=== PATIENT | female | born 1935 | race Caucasian/White ===

== ENCOUNTER → 2016-09-04 | Outpatient (CLI) | payer MEDICARE, OTHER | LOC: GMAB 10:44 | PROVIDERS: ATTEND Family Medicine | DX: D50.9 Iron deficiency anemia, unspecified (principal); D63.1 Anemia in chronic kidney disease; N18.9 Chronic kidney disease, unspecified; I10 Essential (primary) hypertension ==

== ENCOUNTER → 2016-10-07 | Outpatient (CLI) | payer MEDICARE, OTHER ==
--- NOTE | 2016-10-08 11:28 | US ---
EXAM DESCRIPTION: Carotid Duplex CLINICAL HISTORY: STENOSIS COMPARISON: None Available. TECHNIQUE: Carotid Doppler ultrasound. Carreno scale, color Doppler imaging, and spectral pulse Doppler evaluation. FINDINGS: On the right intimal thickening in the common carotid artery with tortuosity is present with extensive anterior and posterior calcified shadowing plaque at the carotid bifurcation noted. Moderate stenosis at the origin of the external carotid artery with antegrade flow is noted. Peak common carotid velocities are 78/11 cm/s with peak ICA velocities proximally of 112/18 cm/s with similar velocities extending into the distal ICA. The mated area stenosis of 51% in the bulb region and a 32% area stenosis of the proximal ICA is suggested on cross-sectional imaging. Hemodynamically no significant stenosis or velocity acceleration is noted. The ICA/CCA ratio is normal at 1.4. On the left peak CCA velocities are 93/14 cm/s with peak ICA velocities of 71/18 cm/s. On cross-sectional imaging there is an estimated 25% area stenosis of the bulb and 30% area stenosis of the ICA. Intimal thickening is present with shadowing plaque at the carotid bifurcation. [place] bilateral antegrade flow in the vertebral arteries is demonstrated. IMPRESSION: Intimal thickening of each common carotid artery with focal calcified shadowing plaque in each carotid bifurcation and proximal internal carotid artery without hemodynamically significant stenosis. Less than 40% stenosis bilaterally is suspected on a diameter basis. Antegrade flow in each vertebral artery. Electronically signed by: Efrain Tony MD 10/08/2016 11:27 AM CDT
== END | disposition home or self-care (01) ==
LOC: US 10:36
PROVIDERS: ATTEND Family Medicine
DX: I65.23 Occlusion and stenosis of bilateral carotid arteries (principal)

== ENCOUNTER 2016-11-27 15:27 | Inpatient (IN) | payer MEDICARE, OTHER ==
[2016-11-27] MEDS ORDERED: ASPIRIN (CHEWABLE) 81 MG TAB PO ONE (15:32)
[2016-11-27] MEDS ORDERED: SODIUM CHLORIDE 0.9% (FLUSH) 10 ML SYG IV PRN ×2 (15:32→21:36)
--- NOTE | 2016-11-27 15:32 | ED.PDOC ---
History of Present Illness - General Chief Complaint: General Stated Complaint: sob/chest pain Time Seen by Provider: 11/27/16 15:32 Source: patient, family Exam Limitations: no limitations - History of Present Illness Initial Comments: Osmel Barton 81 y/o female stated that she had bee short of breath since this morning then while she was doing the laundry bed linens had onset of sharp chest pains 45 minutes ago. Timing/Duration: 1 hour Severity/Quality: moderate, sharp Location: substernal Chest Pain Radiation: no radiation Activities at Onset: activity Prior Chest Pain/Cardiac Workup: cardiac cath, echocardiography, other - cabg Improving Factors: nothing Worsening Factors: nothing Nitro Today/Relief: 0.4 mg x 1, provided by ED Aspirin Treatment Today: 325 mg x 1, provided by ED Associated Symptoms: shortness of breath Allergies/Adverse Reactions: Allergies Penicillins Allergy (Unverified 07/25/12 08:03) 07/24/12 ADM.ORDERS Home Medications: Ambulatory Orders Lisinopril 5 mg PO DAILY #0 07/25/12 Tramadol HCl 50 mg PO BID 04/06/14 Non-Formulary Medication (Novolin N) 0 units SUBCU BEDTIME PRN 06/03/14 Metoprolol Succinate [Toprol Xl] 50 mg PO DAILY #60 tab.er.24 06/05/14 Acetaminophen [Tylenol] 500 mg PO BID 11/12/14 Simvastatin 40 mg PO HS 11/12/14 Citalopram Hydrobromide 40 mg PO DAILY 03/10/15 Magnesium Chloride [Slow-Mag] 64 mg PO BID 03/10/15 Mirtazapine [Remeron] 15 mg PO BEDTIME 03/10/15 glipiZIDE [Glucotrol] 5 mg PO BID 03/10/15 Loratadine 10 mg PO DAILY 11/27/16 Magnesium Chloride [Slow-Mag] 64 mg PO QID 11/27/16 Memantine HCl-Donepezil HCl [Namzaric 28-10 mg] 1 cap PO DAILY 11/27/16 Omeprazole 20 mg PO DAILY 11/27/16 QUEtiapine FUMARATE [SEROquel] 100 mg PO BEDTIME 11/27/16 Review of Systems - Review of Systems Constitutional: States: no symptoms reported EENTM: States: no symptoms reported Respiratory: States: no symptoms reported Cardiology: States: see HPI Gastrointestinal/Abdominal: States: no symptoms reported Genitourinary: States: no symptoms reported Musculoskeletal: States: no symptoms reported Skin: States: no symptoms reported Neurological: States: no symptoms reported Endocrine: States: no symptoms reported Hematologic/Lymphatic: States: no symptoms reported Past Medical History (General) - Patient Medical History Hx Seizures: No Hx Stroke: Yes - TIA Hx Dementia: Yes Hx Asthma: No Hx of COPD: No Hx Cardiac Disorders: Yes Hx Congestive Heart Failure: No Hx Pacemaker: Yes Hx Hypertension: Yes Hx Diabetes: Yes Hx Gastroesophageal Reflux: Yes Hx Cancer: No Hx MRSA: Yes MRSA Source:: Wound - Vaccination History Hx Influenza Vaccination: Yes Hx Pneumococcal Vaccination: Yes - Social History Hx Tobacco Use: No Hx Alcohol Use: No Hx Substance Use: No Hx Physical Abuse: No Hx Emotional Abuse: No - Female History Patient : No Family Medical History - Family History Mother Family History: Unknown Living Status: Hx Family Asthma: No Hx Family Congestive Heart Failure: No Hx Family Hypertension: Yes Hx Family Diabetes: Yes Physical Exam - Physical Exam General Appearance: Alert, No apparent distress Eyes, Ears, Nose, Throat Exam: PERRL/EOMI, normal ENT inspection Neck: non-tender, full range of motion, supple, normal inspection Respiratory: chest non-tender, lungs clear, normal breath sounds, no respiratory distress Cardiovascular/Chest: normal peripheral pulses, regular rate, rhythm, no murmur Peripheral Pulses: radial,right: 1+, radial,left: 1+ Gastrointestinal/Abdominal: normal bowel sounds, non tender, soft, no organomegaly Extremity: normal inspection, no pedal edema, no calf tenderness Neurologic: no motor/sensory deficits, alert, normal mood/affect, oriented x 3 Skin Exam: normal color, warm/dry Lymphatic: no adenopathy Progress - Progress Progress: 11/27/16 20:42 11/27/16 11/27/16 11/27/16 15:33 15:53 16:27 Temperature 97.7 F Pulse Rate [ 57 L 48 L Left Brachial] Respiratory 20 20 Rate Blood Pressure 182/78 136/55 [Left Arm] O2 Sat by Pulse 95 91 L 95 Oximetry 11/27/16 11/27/16 11/27/16 17:00 18:00 19:00 Temperature Pulse Rate [ 46 L 47 L 47 L Left Brachial] Respiratory 16 20 18 Rate Blood Pressure 139/61 131/66 153/61 [Left Arm] O2 Sat by Pulse 97 93 L 93 L Oximetry 11/27/16 20:00 Temperature Pulse Rate [ 47 L Left Brachial] Respiratory Rate Blood Pressure 136/67 [Left Arm] O2 Sat by Pulse 92 L Oximetry 11/27/16 15:32 Telemetry ONCE Nitroglycerin 0.4 mg Tab [Nitrostat] 1 ea SL .Q5MIN PRN Sodium Chloride 0.9% (Flush) [Saline Flush Syringe] 3 ml IV PRN PRN URINALYSIS Stat 11/27/16 15:45 EKG STAT 11/28/16 09:00 Pulse Ox Daily Laboratory Results - last 24 hr 11/27/16 11/27/16 11/27/16 15:40 15:40 15:40 WBC 6.8 RBC 2.68 L Hgb 9.4 L Hct 29.0 L MCV 108.1 H MCH 35.0 H MCHC 32.5 L RDW 14.5 Plt Count 128 L MPV 7.9 Absolute Neuts (auto) 4.70 Absolute Lymphs (auto) 1.30 Absolute Monos (auto) 0.60 Absolute Eos (auto) 0.30 Absolute Basos (auto) 0.10 Neutrophils % 68.2 Lymphocytes % 18.4 L Monocytes % 8.2 Eosinophils % 4.2 Basophils % 1.0 PT 13.4 H INR 1.190 PTT (SP) 28.2 D-Dimer, Quantitative 443 H* pCO2 pO2 HCO3 ABG pH ABG O2 Saturation ABG Base Excess ABG Deoxyhemoglobin Oxyhemoglobin % Carboxyhemoglobin % Methemoglobin % Sat Calc Total Hemoglobin Sodium 140 Potassium 5.7 H Chloride 111 Carbon Dioxide 20 L Anion Gap 14.7 BUN 32 H Creatinine 1.77 H BUN/Creatinine Ratio 18.1 Random Glucose 179 H Serum Osmolality 290.8 Calcium 9.1 Magnesium 1.8 Total Bilirubin 0.5 AST 43 H ALT 46 Alkaline Phosphatase 118 Creatine Kinase 53 CK-MB (CK-2) 2.2 CK-MB (CK-2) % Not Reportable Troponin I 0.02 B-Natriuretic Peptide 459.0 H* Serum Total Protein 7.0 Albumin 4.0 Globulin 3.0 Albumin/Globulin Ratio 1.3 11/27/16 11/27/16 17:25 18:15 WBC RBC Hgb Hct MCV MCH MCHC RDW Plt Count MPV Absolute Neuts (auto) Absolute Lymphs (auto) Absolute Monos (auto) Absolute Eos (auto) Absolute Basos (auto) Neutrophils % Lymphocytes % Monocytes % Eosinophils % Basophils % PT INR PTT (SP) D-Dimer, Quantitative pCO2 36 pO2 71 L HCO3 19.4 ABG pH 7.350 ABG O2 Saturation 95.2 ABG Base Excess -5.2 ABG Deoxyhemoglobin 4.7 Oxyhemoglobin % 93.1 L Carboxyhemoglobin % 0.3 L Methemoglobin % Sat 2.0 H Calc Total Hemoglobin 8.3 L Sodium Potassium Chloride Carbon Dioxide Anion Gap BUN Creatinine BUN/Creatinine Ratio Random Glucose Serum Osmolality Calcium Magnesium Total Bilirubin AST ALT Alkaline Phosphatase Creatine Kinase CK-MB (CK-2) CK-MB (CK-2) % Troponin I 0.02 B-Natriuretic Peptide Serum Total Protein Albumin Globulin Albumin/Globulin Ratio - EKG/XRAY/CT EKG: Sinus, nonspecific ST T wave Chg Comments: HR-55 XRAY: chest - mild linear infiltrates no acute changes Departure - Departure Clinical Impression: Shortness of breath, Anemia, chronic disease Chest pain Qualifiers: Chest pain type: unspecified Qualified Code(s): R07.9 - Chest pain, unspecified Time of Disposition: 20:59 - D/W Juan F Momin ANP/Hospitalist Disposition: Admit Patient Condition: Fair Referrals: Julio Singh MD [Primary Care Provider] - 1-2 Weeks Home Medications: Ambulatory Orders Lisinopril 5 mg PO DAILY #0 07/25/12 Tramadol HCl 50 mg PO BID 04/06/14 Non-Formulary Medication (Novolin N) 0 units SUBCU BEDTIME PRN 06/03/14 Metoprolol Succinate [Toprol Xl] 50 mg PO DAILY #60 tab.er.24 06/05/14 Acetaminophen [Tylenol] 500 mg PO BID 11/12/14 Simvastatin 40 mg PO HS 11/12/14 Citalopram Hydrobromide 40 mg PO DAILY 03/10/15 Magnesium Chloride [Slow-Mag] 64 mg PO BID 03/10/15 Mirtazapine [Remeron] 15 mg PO BEDTIME 03/10/15 glipiZIDE [Glucotrol] 5 mg PO BID 03/10/15 Loratadine 10 mg PO DAILY 11/27/16 Magnesium Chloride [Slow-Mag] 64 mg PO QID 11/27/16 Memantine HCl-Donepezil HCl [Namzaric 28-10 mg] 1 cap PO DAILY 11/27/16 Omeprazole 20 mg PO DAILY 11/27/16 QUEtiapine FUMARATE [SEROquel] 100 mg PO BEDTIME 11/27/16 Decision To Admit - Decistion To Admit Decision to Admit Reason: Admit from ER Decision to Admit Date: 11/27/16 Decision to Admit Time: 21:01
[2016-11-27] MEDS ORDERED: ASPIRIN TABLET 325 MG TAB ONE (15:34)
--- NOTE | 2016-11-27 15:48 | RAD ---
EXAM DESCRIPTION: Chest,1 View CLINICAL HISTORY: pain COMPARISON: November 12, 2014 IMPRESSION: Single AP portable upright view of the chest shows cardiac silhouette and pulmonary vasculature to be within normal limits. Postsurgical changes from sternotomy. Left subclavian dual-lead transvenous cardiac pacemaker is again seen. Lungs are normally aerated. Mild linear increased density in the region of the results fissure is seen. No acute infiltrates are identified. No obvious pleural effusion or pneumothorax is seen. Electronically signed by: Flex Mcleod MD 11/27/2016 3:45 PM CDT
[2016-11-27] MEDS ORDERED: ASPIRIN TABLET 325 MG TAB PO ONE (16:00)
[2016-11-27] MEDS: NITROGLYCERIN 0.4 MG 25 EA TAB SL PRN ×3 (16:02→22:06)
--- NOTE | 2016-11-27 21:16 | HP ---
SUPERVISING PHYSICIAN: Fabián Barton MD CHIEF COMPLAINT: Shortness of breath with chest pains. HISTORY OF PRESENT ILLNESS: Ms. Barton is an 81-year-old, female patient who presented to the Emergency Room stating that she had started having some shortness of breath since early this morning while she was doing her laundry and then had a sudden onset of sharp chest pains 45 minutes prior to present to the Emergency Department. She has a history of diabetes, hypertension, and coronary artery disease with a previous coronary artery bypass graft. She was just recently seen by her content analyst, Dr. Jones, in a regular visit and it was noted that the patient was clinically stable from a cardiovascular standpoint. She does have a history also of pacemaker and paroxysmal atrial fibrillation. Her last echocardiogram reviewed was from 2012 and it was noted she had an ejection fraction of 45%. Given the patient's significant shortness of breath, an arterial blood gases was performed showing that she had some mild hypoxemia with a PO2 of 71 on room air satting 95%. She also has a history of macrocytic anemia and chronic renal insufficiency. She is followed by Dr. Arzola. On laboratory studies in the Emergency Room, hemoglobin was 9.4, hematocrit 29.0 with a normal white count and normal differential. Review of the previous records shows the last CBC that was performed in the clinic on 11/12/16 showed hemoglobin 8.7, hematocrit 26.5. She is also noted to have elevated creatinine of 1.77 with an elevated BUN of 32. Review of her previous chemistries in the clinic on the same date as CBC showed she had a BUN at that time of 34 and creatinine 1.7 with potassium 5.9. Her potassium on admission was 5.7. She also had an elevated BNP, but her cardiac enzymes show troponin 0.02 times 2. She was complains of sharp chest pains, more epigastric that was reproducible on palpitation. She was given nitro in the Emergency Department which resulted in minimal relief of her pain, EKG showed a sinus bradycardia with nonspecific ST wave changes with a heart rate of 55. Chest x-ray showed mild linear infiltrates, but no acute changes. She was started on some oxygen as well which did help her saturations. Initially, her vital signs on admission showed she was satting 91% on room air at rest, but having significant desaturations with any exertional effort. Given the patient's symptomatology, past history, and current chest pains, Dr. Quintero, the Emergency Room physician, requested the patient be placed in observation tonight for cardiac telemetry and a repeat of cardiac enzymes as well as further evaluation and treatment to rule out acute myocardial infarction versus exacerbation of congestive heart failure given she had an elevated BNP. It is also noted on coagulation studies that she had an elevated D-dimer of 443 and given her risk factors, close observation is warranted for further evaluation with possibility of performing a CT of the chest to rule out pulmonary embolism after she is given a chance to get some fluids on board and hopefully improve her creatinine enough to complete a CTA. She will be placed in observation tonight for further treatment and evaluation. At the time of admission, she was stable. PAST MEDICAL HISTORY: 1. Hypertension. 2. Macrocystic anemia, followed by Dr. Arzola. 3. Rheumatoid arthritis. 4. History of atrial fibrillation with a permanent cardiac pacemaker. 5. Diabetes, type 2. 6. Congestive heart failure with last echocardiogram in 2012 showing ejection fraction of 45% with systolic dysfunction, unknown etiology. 7. History of frequent transient ischemic attacks and presyncopal episodes, followed by Dr. Jones and Dr. Singh. 8. History of upper GI bleed in 2009 secondary to prepyloric and duodenal bulb ulcers with EGD performed in [address] Joe with patient on an acid suppressant regimen. 9. Chronic back pain. 10. Coronary artery disease. 11. Chronic renal insufficiency, followed by Dr. Corado. 12. Seasonal allergies. 13. Depression and anxiety disorder. 14. Chronic hypomagnesemia. 15. Alzheimer's dementia with a history of hallucinations, followed by Dr. Singh. PAST SURGICAL HISTORY: 1. Coronary artery bypass. 2. Pacemaker placement. 3. Appendectomy. 4. Bilateral cataract surgery. 5. Uterine fibroid removal. 6. Back surgery. 7. Last EGD in June of [address] Joe, for right upper quadrant pain and gastrointestinal bleed, diagnosed with a prepyloric and duodenal bulb ulcer. 8. Laminectomy. CURRENT MEDICATIONS: 1. Glucotrol 5 mg twice daily. 2. Tramadol 50 mg twice daily. 3. Simvastatin 40 mg at bedtime. 4. Seroquel 100 mg at bedtime. 5. Omeprazole 20 mg daily. 6. Novolin N sliding scale. 7. Remeron 15 mg at bedtime. 8. Toprol XL 50 mg daily. 9. Namzaric 28-10 mg 1 capsule daily. 10. Slo-Mag 64 mg q.i.d. 11. Loratadine 10 mg daily. 12. Lisinopril 5 mg daily. 13. Citalopram 40 mg daily. 14. Acetaminophen 500 mg daily. ALLERGIES: PENICILLINS. FAMILY HISTORY: Diabetes and hypertension in her mother. Mother also with history of myocardial infarctions. Brother from liver cancer in 2003. SOCIAL HISTORY: The patient is a nonsmoker. She never drinks alcohol. She has been for 20 years. She lives with her daughter. REVIEW OF SYSTEMS: CONSTITUTIONAL: Denies any fevers, chills, or weight loss. She does have some fatigue. HEENT: No blurred vision, tinnitus, epistaxis or reported dysphagia. RESPIRATORY: As noted in history of present illness with shortness of breath which appears to be an ongoing chronic issue. She denies any cough, sputum production, hemoptysis or wheezing. CARDIOVASCULAR: As noted in history of present illness, midsternal epigastric sharp chest pains that are reproducible and exacerbated by palpation in the epigastric area. Denies any nausea or vomiting, but has had previous presyncopal episodes. GASTROINTESTINAL: Denies nausea or vomiting. No diarrhea. No blood in stool, no significant bowel habit changes. GENITOURINARY: Denies dysuria, hematuria, or frequency. NEUROLOGIC: She notes she has some tingly numbness normally in her hands and feet and has had some presyncopal/syncopal episodes in the past. She has a history of Alzheimer's dementia. Denies any vision changes or headaches. PHYSICAL EXAMINATION: VITAL SIGNS: Temperature 97.7. Pulse 48. Blood pressure 144/86. Respirations 18. Saturation 95% on room air on admission to the Medical/Surgical Floor. Initial O2 on room air was 91% with desaturations with exertional effort. Admission weight 58.7 kg. GENERAL: On admission to the Medical/Surgical Floor, the patient appears to be in no acute distress. She is quite comfortable although she does say she has continued chest pains or epigastric pains. She is alert and oriented. HEENT: Tympanic membranes clear bilaterally. Oropharynx is pink. Mucous membranes dry. No lesions noted. NECK: Supple, nontender, full range of motion. No jugular venous distention noted. CHEST: Lungs clear to auscultation, just diminished towards the bases. No rhonchi, wheezes, or rales. There was notable discomfort with palpation of the epigastric region. She noted it made the chest pain she was reporting worse. CARDIOVASCULAR: Bradycardic rhythm without any murmurs, gallops, or rubs noted. ABDOMEN: Soft, nontender. Positive bowel sounds. EXTREMITIES: There is no cyanosis, clubbing or edema. NEUROLOGIC: The patient is alert and oriented times three. Cranial nerves II- XII are grossly intact. Facial features are symmetrical. Extraocular movements are within normal limits. There is no nystagmus noted. No other neurologic or sensory motor deficits. LABORATORY: White count on admission 6.8, hemoglobin 9.4, hematocrit 29.0, platelet count 128,000, differential within normal limits. Coagulation studies showed PT 13.4, INR 1.1. D-dimer elevated at 443. Blood gas analysis showed normal pH of 7.35, POC2 36, PO2 low at 71, bicarb 19.4, saturation 94% on room air. Chemistries showed an elevated potassium of 5.7, BUN 32, creatinine 1.77, glucose 179, osmolality 290, bilirubin within normal limits, AST slightly elevated. All other liver functions were within normal limits. Initial troponin 0.02, repeat at 3 hours was 0.02. CPK normal at 53. Magnesium 1.8. Urinalysis pending. RADIOLOGY: Single view chest x-ray in the Emergency Department per radiologic interpretation showed portable upright view with a cardiac silhouette and pulmonary vasculature within normal limits. Post surgical changes were noted with sternotomy. Left subclavian dual lead transvenous cardiac pacemaker seen. Lungs were normally aerated with mild linear increased density in the region of the results fissure is seen. No acute infiltrates are identified. No obvious pleural effusion or pneumothorax is seen. EKG in the Emergency Department showed sinus bradycardia with nonspecific ST-wave changes. Review of previous EKG in 2014 showed paced atrial rhythm. On review of records from Dr. Jones clinic visit showed sinus rhythm with nonspecific ST changes as well. ASSESSMENT: 1. Chest pain, unknown etiology, with the patient having a significant history of cardiovascular disease and diabetes requiring further telemetry and monitoring to further rule out acute myocardial infarction. Concerns for angina from anemia. 2. Moderate dehydration with concerns for hemoconcentration with a current low hemoglobin and hematocrit, possibly resulting in ongoing chest pains with the patient having a history of macrocytic anemia. 3. Diabetes mellitus, type 2. 4. Chronic renal insufficiency with prerenal azotemia from dehydration. 5. History of atrial fibrillation with the patient currently being in a sinus rhythm. 6. Electrolyte imbalance with hyperkalemia due to renal insufficiency, possibly exacerbation from dehydration. 7. 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 Arzola. 8. Hypertension. 9. History of coronary artery disease. 10. History of past transient ischemic attacks. 11. Pacemaker implantation due to atrial fibrillation, followed by Dr. Jones. 12. History of chronic back pain. 13. History of dementia/Alzheimer's disease. 14. History of depression and anxiety disorder. 15. History of gastroesophageal reflux disease with previous EGD in 2009 showing prepyloric and duodenal bulb ulcers with the patient being placed on acid suppression with previous EGD performed by Dr. Joe and continued followup with Dr. Singh. 16. History of congestive heart failure with last echocardiogram per medical record review indicated to be performed previously in 2012 and an ejection fraction of 45% with systolic dysfunction with a current elevated Beta natriuretic peptide on admission, possibly falsely elevated secondary to dehydration. 17. Elevated D-dimer with the patient having reported shortness of breath, chest pains, but unable to perform CTA secondary to decreased renal function. PLAN: The patient will be placed in observation tonight and monitored closely on telemetry with repeat of her cardiac enzymes in the morning. Given her dehydration and history of congestive heart failure, we will provide her with IV fluids with half normal saline at 60 an hour. In regards to the hyperkalemia , we will treat this with IV fluids and repeat BMP in the morning. We will utilize IV fluids in efforts to hopefully improve her renal function with anticipation of possibly performing a CT of the chest to further rule out a possible pulmonary embolism. We will also do venous Doppler studies of bilateral extremities to further rule out deep venous thrombosis. We will give her some Protonix IV as well as GI slider to see if this will help with decreasing her pain level as well as some morphine. We will hold off on Lovenox tonight until we can repeat a hemoglobin and hematocrit in the morning and perform occult bloods to ensure that she is not having acute loss and further evaluate her hemoglobin and hematocrit. I will also start her on a nitro patch 0.4 mg in efforts to treat her angina. She does see Dr. Jones for cardiology and Dr. Arzola for her chronic anemia as well as Dr. Corado for renal insufficiency, all of whom are available if need be for further consultation. I will anticipate length of stay to be 1 to 2 days and hopefully will be able to discharge tomorrow. Until discharge, we will continue to monitor the patient closely and treat appropriately. #[id number] [facility]
[2016-11-27] MEDS ORDERED: DEXTROSE 50% 25 GM/50 ML SYG IV PRN (21:36)
[2016-11-27] MEDS ORDERED: NITROGLYCERIN 0.4 MG 25 EA TAB SL PRN (21:36)
[2016-11-27] MEDS ORDERED: GLUCAGON INJ 1 MG VIAL SUBCU PRN (21:36)
[2016-11-27] MEDS ORDERED: MORPHINE SULFATE INJ 10 MG/ML VIAL IV PRN (21:36)
[2016-11-27] MEDS ORDERED: ACETAMINOPHEN 325 MG TAB PO PRN (21:36)
[2016-11-27] MEDS ORDERED: SODIUM CHLORIDE 0.45% 1000ML 1,000 ML IVS PRN (21:40)
[2016-11-27] MEDS ORDERED: IV SET AND CAP CHANGE INJ INJ SCH (22:00)
[2016-11-27] MEDS: NITROGLYCERIN 0.4 MG/HR PATCH TOP SCH (22:06)
[2016-11-27] MEDS ORDERED: LIDOCAINE VIS-MYLANTA 30 ML UD PO ONE (22:24)
[2016-11-27] MEDS ORDERED: PANTOPRAZOLE INJECTION 40 MG in SODIUM CHLORIDE 0.9% 100ML 100 ML IVPB ONE (22:35)
[2016-11-27] MEDS ORDERED: PANTOPRAZOLE SODIUM IV 40 MG VIAL ONE (22:52)
[2016-11-27] MEDS ORDERED: SODIUM CHLORIDE 0.45% 1000ML 1,000 ML IVS ONE (22:55)
[2016-11-27] MEDS ORDERED: SODIUM CHLORIDE 0.9% 100ML 100 ML IVPB ONE (22:57)
[2016-11-28] MEDS: INSULIN LISPRO 100 UNITS/ML PEN SUBCU SCH ×4 (07:59→20:57)
[2016-11-28] MEDS: ASPIRIN TABLET 325 MG TAB PO SCH (08:26)
[2016-11-28] MEDS: SODIUM CHLORIDE 0.9% (FLUSH) 10 ML SYG IV SCH ×2 (08:26→20:20)
[2016-11-28] MEDS ORDERED: MAGNESIUM SULFATE PREMIX 2GM 2 GM in PREMIX BAG 1 BAG IVPB ONE (12:26)
[2016-11-28] MEDS ORDERED: MAGNESIUM SULFATE PREMIX 2GM 50 ML IVPB ONE (12:38)
[2016-11-28] MEDS: MAGNESIUM CHLORIDE 64 MG TAB PO SCH ×3 (12:41→20:17)
[2016-11-28] MEDS: METOPROLOL SUCCINATE XL 50 MG TAB PO SCH (12:41)
--- NOTE | 2016-11-28 12:52 | US ---
EXAM DESCRIPTION: Venous,Lower Extremity RT (accession [id number]), Venous,Lower Extremity LT (accession [id number]) CLINICAL HISTORY: elevated ddimer chest sob COMPARISON: None Available. TECHNIQUE: Bilateral lower extremity venous duplex FINDINGS: There is no DVT identified. There is normal color flow observed with good flow augmentation. All deep veins compress normally. IMPRESSION: Negative for DVT Electronically signed by: Ross Escobar MD 11/28/2016 12:51 PM CDT
--- NOTE | 2016-11-28 12:52 | US ---
EXAM DESCRIPTION: Venous,Lower Extremity RT (accession [id number]), Venous,Lower Extremity LT (accession [id number]) CLINICAL HISTORY: elevated ddimer chest sob COMPARISON: None Available. TECHNIQUE: Bilateral lower extremity venous duplex FINDINGS: There is no DVT identified. There is normal color flow observed with good flow augmentation. All deep veins compress normally. IMPRESSION: Negative for DVT Electronically signed by: Ross Escobar MD 11/28/2016 12:51 PM CDT
[2016-11-28] MEDS: glipiZIDE 5 MG TAB PO SCH (16:37)
--- NOTE | 2016-11-28 17:18 | PN ---
DATE: 11/28/16 SUPERVISING PHYSICIAN: Fabián Barton M.D. SUBJECTIVE: The patient is lying in her hospital bed. Her family member is at the bedside. She has no complaints of chest pain, shortness of breath, nausea or vomiting. She did say she had some mild shortness of breath one time when she got up to go to the bathroom, but other than that she had no problems. OBJECTIVE: She is afebrile, heart rate is 48, blood pressure 144/62, respiratory rate 18, O2 sats have been as low as 88% on 1 liter nasal cannula. They are now 99%. RESPIRATORY: Essentially clear to auscultation. CARDIAC: Bradycardic rate, regular rhythm. ABDOMEN: Soft, nondistended, non-tender. Bowel sounds are positive. EXTREMITIES: No cyanosis, clubbing or edema. NEUROLOGIC: She is awake, alert and oriented times three. LABORATORY: WBC 7.9, hemoglobin 8.2 and 25.1, platelets 110. Sodium 140, potassium 5.5, chloride 112, BUN 31, creatinine 1.57, glucose has run between 138 and 273. Magnesium 1.7. Cardiac enzymes are all negative. Lower extremity ultrasounds are negative for DVT. All other labs and films have been reviewed via the EMR. ASSESSMENT: 1. Chest pain with unknown etiology. She has had 3 sets of negative cardiac enzymes. There are concerns that her angina may be from anemia. 2. Moderate dehydration with concerns for hemoconcentration. Currently has a low hemoglobin and hematocrit, and may have resulting chest pains from the low H&H. 3. Diabetes mellitus type 2. 4. Chronic renal insufficiency. 5. History of atrial fibrillation with the patient currently being in sinus bradycardia. 6. Electrolyte imbalance that has resolved. 7. Macrocytic anemia. She is followed by Dr. Arzola. 8. Hypertension. 9. Coronary artery disease. 10. History of transient ischemic attacks. 11. Pacemaker implantation due to atrial fibrillation followed by Dr. Jones. 12. History of chronic back pain. 13. Dementia, Alzheimer's disease. 14. Depression and anxiety. 15. Gastroesophageal reflux disease. 16. Congestive heart failure with the last noted ejection fraction of 45% in 2012 showing systolic dysfunction with a current elevated BNP on admission. 17. Elevated D-dimer with negative lower extremity ultrasound, unable to do a CTA at this time due to her renal function. PLAN: We will continue to monitor the patient closely and continue present supportive care. Dr. Singh reviewed her records and she has seen Dr. Jones within the last several weeks. He had concerns with her heart rate being low that there may be malfunction with her pacemaker. We will try to get her in to see Dr. Jones next Thursday. I will also monitor her H&H overnight. Her baseline hemoglobin is 8.6. Since she has had fluids, her baseline is close to normal, so will monitor her H&H overnight. It may be advisable for her to see Dr. Arzola again soon. I have also ordered some of her stool. I have ordered routine lab for in the morning. In the meantime, we will continue to monitor the patient closely and follow as needed. Dr. Barton is the collaborating physician available for consultation. #[id number] [facility]
[2016-11-28] MEDS ORDERED: QUEtiapine FUMARATE 100 MG TAB ONE (19:44)
[2016-11-28] MEDS ORDERED: SIMVASTATIN 20 MG TAB ONE (19:45)
[2016-11-28] MEDS ORDERED: MIRTAZAPINE 15 MG TAB ONE (19:45)
[2016-11-28] MEDS ORDERED: traMADol HCL 50 MG TAB ONE (19:46)
[2016-11-28] MEDS: traMADol HCL 50 MG TAB PO SCH (20:17)
[2016-11-28] MEDS ORDERED: MIRTAZAPINE 15 MG TAB PO SCH (21:00)
[2016-11-28] MEDS ORDERED: QUEtiapine FUMARATE 100 MG TAB PO SCH (21:00)
[2016-11-28] MEDS ORDERED: SIMVASTATIN 20 MG TAB PO SCH (21:00)
[2016-11-28] MEDS: NITROGLYCERIN 0.4 MG/HR PATCH TOP SCH (22:38)
[2016-11-29] MEDS ORDERED: OMEPRAZOLE CAP 20 MG CAP PO SCH (06:30)
[2016-11-29] MEDS ORDERED: CITALOPRAM HBR 20 MG TAB ONE (07:32)
[2016-11-29] MEDS ORDERED: LORATADINE 10 MG TAB PO ONE (07:32)
[2016-11-29] MEDS ORDERED: MEMANTINE 10 MG TAB ONE (07:33)
[2016-11-29] MEDS ORDERED: LISINOPRIL 5 MG TAB ONE (07:33)
[2016-11-29] MEDS: glipiZIDE 5 MG TAB PO SCH (07:44)
[2016-11-29] MEDS: MAGNESIUM CHLORIDE 64 MG TAB PO SCH (08:29)
[2016-11-29] MEDS: METOPROLOL SUCCINATE XL 50 MG TAB PO SCH (08:29)
[2016-11-29] MEDS: ASPIRIN TABLET 325 MG TAB PO SCH (08:29)
[2016-11-29] MEDS: traMADol HCL 50 MG TAB PO SCH (08:30)
[2016-11-29] MEDS ORDERED: LORATADINE 10 MG TAB PO SCH (09:00)
[2016-11-29] MEDS ORDERED: CITALOPRAM HBR 20 MG TAB PO SCH (09:00)
[2016-11-29] MEDS ORDERED: LISINOPRIL 5 MG TAB PO SCH (09:00)
[2016-11-29] MEDS ORDERED: NON-FORMULARY MEDICATION 1 EA MIS (Memantine Hcl-Donepezil Hcl [Namzaric 28-10 Mg] 1 CAP) PO SCH (09:00)
[2016-11-29 11:32] VITALS: BP 148/72; TEMP 97.8; O2SAT 93
--- NOTE | 2016-11-29 12:20 | DS ---
SUPERVISING PHYSICIAN: Luke Rosario M.D. DISCHARGE DIAGNOSIS: 1. Chest pain with unknown etiology. She has had 3 sets of negative cardiac enzymes. There are concerns that her angina may be from anemia. 2. Moderate dehydration that has now resolved. 3. Diabetes mellitus type 2. 4. Chronic renal insufficiency. 5. History of atrial fibrillation with tenderness currently being in sinus bradycardia. 6. Electrolyte imbalance that has resolved. 7. Macrocytic anemia followed by Dr. Arzola. 8. Hypertension. 9. Coronary artery disease. 10. History of transient ischemic attacks. 11. Pacemaker implantation due to atrial fibrillation followed by Dr. Jones. 12. History of chronic back pain. 13. Dementia, Alzheimer's disease. 14. Depression and anxiety. 15. Gastroesophageal reflux disease. 16. Congestive heart failure with a last noted ejection fraction of 45% in 2012 showing systolic dysfunction and a current elevated BNP on admission. 17. Elevated D-dimer with negative lower extremity ultrasound and we are unable to do a CT of the chest at this time due to her renal function. HISTORY OF PRESENT ILLNESS: This is an 81 year-old female patient who presented to the Emergency Room on date of admission due to some shortness of breath earlier in the morning. She also had some sharp chest pains 45 minutes prior to coming to the Emergency Room. She has a history of diabetes, hypertension and coronary artery disease with previous coronary artery bypass graft. She was recently seen by her flexographic press operator, Dr. Jones, on a regular visit. It was noted at that time that the patient was clinically stable. She does have a history of pacemaker and paroxysmal atrial fibrillation. Her last echocardiogram reviewed from 2012 was noted to have an ejection fraction of 45% . Her arterial blood gas in the Emergency Room showed a PO2 of 71 on room air. She also has a history of macrocytic anemia and chronic renal insufficiency. She is followed by Dr. Arzola and Dr. Corado. Her hemoglobin in the Emergency Room was 9.4 and hematocrit was 29. She had a normal white count and normal differential. Her baseline hemoglobin is around 8.7. Creatinine was also elevated at 1.77. BNP was elevated but her cardiac enzymes were negative. EKG showed sinus bradycardia with nonspecific ST wave changes and heart rate was 55. Her initial vital signs were stable with the exception of her bradycardia and her oxygen saturations were 91% on room air, but she had significant desaturations with any exertional effort. HOSPITAL COURSE: The patient was placed in observation in the hospital and her heart was monitored via telemetry. Repeat cardiac enzymes were negative. She had a D-dimer of 443 but due to her renal function a CTA of the chest was unable to be performed. She did have bilateral lower extremity sonograms that were negative for any DVT. In the morning after admission, her hemoglobin dropped to 8.2. This morning it is 8.6 which is close to her baseline. Platelet count is 112. Potassium is 5.7, baseline is about 5.7. Chloride was 113, BUN is 30, creatinine 1.46, baseline creatinine is usually about 1.5. She has had no chest pain while in the hospital, although her heart rate is usually around 48, sinus bradycardia on the cardiac sonographer. Her labs have normalized and she will be discharged home today. DISCHARGE PLAN: The patient will be discharged home in fair condition. She has an appointment with Dr. Singh on Thursday. Hopefully Dr. Singh can get her in to see Dr. Jones on Thursday as there are some concerns that her pacemaker may not be functioning due to her heart rate being in the upper 40s. I will send her home on the Holter monitor. At the time she sees Dr. Singh, she is supposed to turn in the Holter monitor, but the hospital has ordered a CardioNet. The Holter monitor may need to be reordered until she can see Dr. Jones, hopefully on Thursday. I will send her home on some Nitroglycerin as needed for chest pain. She will continue her home medications plus aspirin daily. She is to resume her previous activity level as well as her previous diet. She does live with her daughter but she would probably benefit from home health, so she has chosen [facility] and we have called then to establish care with her, and she can have a [id number] with Dr. Singh on Thursday. If she has any further problems, she can return to the hospital or call Dr. Singh's office. DISCHARGE MEDICATIONS: 1. Lisinopril. 2. Tramadol. 3. Novolin N insulin. 4. Metoprolol. 5. Acetaminophen. 6. Simvastatin. 7. Magnesium chloride. 8. Remeron. 9. Citalopram. 10. Glucotrol. 11. Seroquel. 12. Loratadine. 13. Omeprazole. 14. Magnesium chloride. 15. Namzaric. 16. Aspirin. 17. Nitroglycerin. Dr. Rosario is the collaborating physician and available for consultation. #[id number] [facility]
== END 2016-11-29 11:15 | disposition home health service (06) | DRG 313 ==
LOC: ER 15:27 → MS 21:15 → OBSVTOIN 21:15
PROVIDERS: ADMIT Nurse Practitioner Family; ATTEND Nurse Practitioner Acute Care
DX: R07.9 Chest pain, unspecified (principal); I13.0 Hypertensive heart and chronic kidney disease with heart failure and stage 1 through stage 4 chronic kidney disease, or unspecified chronic kidney disease; I50.22 Chronic systolic (congestive) heart failure; E86.0 Dehydration; E11.22 Type 2 diabetes mellitus with diabetic chronic kidney disease; N18.9 Chronic kidney disease, unspecified; D53.9 Nutritional anemia, unspecified; R79.1 Abnormal coagulation profile; I25.10 Atherosclerotic heart disease of native coronary artery without angina pectoris; G89.29 Other chronic pain; M54.9 Dorsalgia, unspecified; G30.9 Alzheimer's disease, unspecified; F02.80 Dementia in other diseases classified elsewhere, unspecified severity, without behavioral disturbance, psychotic disturbance, mood disturbance, and anxiety; F41.9 Anxiety disorder, unspecified; F32.9 Major depressive disorder, single episode, unspecified; K21.9 Gastro-esophageal reflux disease without esophagitis; R00.1 Bradycardia, unspecified; R09.02 Hypoxemia; M06.9 Rheumatoid arthritis, unspecified; E83.42 Hypomagnesemia; Z95.0 Presence of cardiac pacemaker; Z86.73 Personal history of transient ischemic attack (TIA), and cerebral infarction without residual deficits; Z95.1 Presence of aortocoronary bypass graft; Z79.84 Long term (current) use of oral hypoglycemic drugs; Z79.4 Long term (current) use of insulin; Z88.0 Allergy status to penicillin; E87.5 Hyperkalemia; D63.1 Anemia in chronic kidney disease

== ENCOUNTER → 2016-12-23 | Outpatient (CLI) | payer MEDICARE, OTHER | END | disposition home or self-care (01) | LOC: BFHH 12:26 | PROVIDERS: ATTEND Family Medicine | DX: D64.9 Anemia, unspecified (principal); I25.119 Atherosclerotic heart disease of native coronary artery with unspecified angina pectoris; N18.9 Chronic kidney disease, unspecified; E11.22 Type 2 diabetes mellitus with diabetic chronic kidney disease; D63.1 Anemia in chronic kidney disease ==

== ENCOUNTER → 2016-12-29 | Outpatient (CLI) | payer MEDICARE, OTHER | END | disposition home or self-care (01) | LOC: GMAB 10:56 | PROVIDERS: ATTEND Family Medicine | DX: D64.9 Anemia, unspecified (principal); I25.119 Atherosclerotic heart disease of native coronary artery with unspecified angina pectoris; I13.0 Hypertensive heart and chronic kidney disease with heart failure and stage 1 through stage 4 chronic kidney disease, or unspecified chronic kidney disease ==

== ENCOUNTER → 2017-01-06 | Outpatient (CLI) | payer MEDICARE, OTHER | END | disposition home or self-care (01) | LOC: BFHH 14:41 | PROVIDERS: ATTEND Family Medicine | DX: D64.9 Anemia, unspecified (principal) ==

== ENCOUNTER → 2017-01-12 | Outpatient (CLI) | payer MEDICARE, OTHER | END | disposition home or self-care (01) | LOC: BFHH 11:23 | PROVIDERS: ATTEND Family Medicine | DX: D50.9 Iron deficiency anemia, unspecified (principal); D63.1 Anemia in chronic kidney disease ==

== ENCOUNTER → 2017-01-19 | Outpatient (CLI) | payer MEDICARE, OTHER | END | disposition home or self-care (01) | LOC: BFHH 14:34 | PROVIDERS: ATTEND Family Medicine | DX: D50.9 Iron deficiency anemia, unspecified (principal); D63.1 Anemia in chronic kidney disease ==

== ENCOUNTER → 2017-02-02 | Outpatient (CLI) | payer MEDICARE, OTHER | END | disposition home or self-care (01) | LOC: BFHH 12:53 | PROVIDERS: ATTEND Family Medicine | DX: D64.9 Anemia, unspecified (principal) ==

== ENCOUNTER → 2017-02-03 | Outpatient (CLI) | payer MEDICARE, OTHER | END | disposition home or self-care (01) | LOC: BFHH 16:51 | PROVIDERS: ATTEND Family Medicine | DX: R41.82 Altered mental status, unspecified (principal) ==

== ENCOUNTER → 2017-02-09 | Outpatient (CLI) | payer MEDICARE, OTHER | END | disposition home or self-care (01) | LOC: BFHH 11:59 | PROVIDERS: ATTEND Family Medicine | DX: D50.9 Iron deficiency anemia, unspecified (principal); I30.0 Acute nonspecific idiopathic pericarditis; N18.9 Chronic kidney disease, unspecified; E11.22 Type 2 diabetes mellitus with diabetic chronic kidney disease; R63.0 Anorexia ==

== ENCOUNTER → 2017-02-12 | Outpatient (CLI) | payer MEDICARE, OTHER ==
--- NOTE | 2017-02-12 15:57 | CT ---
EXAM DESCRIPTION: Head CLINICAL HISTORY: 81 years, Female, UNSPECIFIED DEMENTIA WITHOUT BEHAVIORAL DISTURBANCE COMPARISON: FINDINGS: Unenhanced images through the brain. This examination was performed according to our departmental dose optimization program, which includes automatic exposure control, adjustment of the MA and/or kV according to the patient size and/or use of iterative reconstruction technique. No intracranial hemorrhage or mass. Enlarged ventricles and sulci. Moderate microischemic change periventricular white matter. 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 IMPRESSION: Moderate atrophy and microischemic change without intracranial hemorrhage or mass. Electronically signed by: Levon Vickers MD 02/12/2017 3:55 PM CDT
== END | disposition home or self-care (01) ==
LOC: CT 15:14
PROVIDERS: ATTEND Family Medicine
DX: F03.90 Unspecified dementia, unspecified severity, without behavioral disturbance, psychotic disturbance, mood disturbance, and anxiety (principal)

== ENCOUNTER → 2017-02-16 | Outpatient (CLI) | payer MEDICARE, OTHER | END | disposition home or self-care (01) | LOC: BFHH 14:43 | PROVIDERS: ATTEND Family Medicine | DX: D50.9 Iron deficiency anemia, unspecified (principal); D63.1 Anemia in chronic kidney disease ==

== ENCOUNTER → 2017-02-23 | Outpatient (CLI) | payer MEDICARE, OTHER | END | disposition home or self-care (01) | LOC: BFHH 13:01 | PROVIDERS: ATTEND Family Medicine | DX: D50.9 Iron deficiency anemia, unspecified (principal); D63.1 Anemia in chronic kidney disease ==

== ENCOUNTER → 2017-03-02 | Outpatient (CLI) | payer MEDICARE, OTHER | END | disposition home or self-care (01) | LOC: BFHH 11:54 | PROVIDERS: ATTEND Family Medicine | DX: D50.9 Iron deficiency anemia, unspecified (principal) ==

== ENCOUNTER → 2017-03-09 | Outpatient (CLI) | payer MEDICARE, OTHER | END | disposition home or self-care (01) | LOC: BFHH 10:30 | PROVIDERS: ATTEND Family Medicine | DX: N18.9 Chronic kidney disease, unspecified (principal); D63.1 Anemia in chronic kidney disease ==

== ENCOUNTER → 2017-03-16 | Outpatient (CLI) | payer MEDICARE, OTHER | END | disposition home or self-care (01) | LOC: BFHH 12:48 | PROVIDERS: ATTEND Family Medicine | DX: D50.9 Iron deficiency anemia, unspecified (principal); N39.0 Urinary tract infection, site not specified ==

== ENCOUNTER → 2017-03-25 | Outpatient (CLI) | payer MEDICARE, OTHER | END | disposition home or self-care (01) | LOC: BFHH 14:27 | PROVIDERS: ATTEND Family Medicine | DX: D50.9 Iron deficiency anemia, unspecified (principal) ==

== ENCOUNTER → 2017-03-30 | Outpatient (CLI) | payer MEDICARE, OTHER | END | disposition home or self-care (01) | LOC: GMAB 12:20 | PROVIDERS: ATTEND Family Medicine | DX: D50.9 Iron deficiency anemia, unspecified (principal); R30.0 Dysuria; Z87.440 Personal history of urinary (tract) infections ==

== ENCOUNTER → 2017-04-06 | Outpatient (CLI) | payer MEDICARE, OTHER | END | disposition home or self-care (01) | LOC: BFHH 14:33 | PROVIDERS: ATTEND Family Medicine | DX: D50.9 Iron deficiency anemia, unspecified (principal) ==

== ENCOUNTER → 2017-04-13 | Outpatient (CLI) | payer MEDICARE, OTHER | END | disposition home or self-care (01) | LOC: BFHH 12:59 | PROVIDERS: ATTEND Family Medicine | DX: D50.9 Iron deficiency anemia, unspecified (principal) ==

== ENCOUNTER → 2017-04-20 | Outpatient (CLI) | payer MEDICARE, OTHER | END | disposition home or self-care (01) | LOC: BFHH 12:53 | PROVIDERS: ATTEND Family Medicine | DX: D50.9 Iron deficiency anemia, unspecified (principal); L89.622 Pressure ulcer of left heel, stage 2 ==

== ENCOUNTER → 2017-04-28 | Outpatient (CLI) | payer MEDICARE, OTHER | END | disposition home or self-care (01) | LOC: BFHH 15:21 | PROVIDERS: ATTEND Family Medicine | DX: D50.9 Iron deficiency anemia, unspecified (principal) ==

== ENCOUNTER → 2017-05-05 | Outpatient (CLI) | payer MEDICARE, OTHER | END | disposition home or self-care (01) | LOC: BFHH 14:53 | PROVIDERS: ATTEND Family Medicine | DX: D50.9 Iron deficiency anemia, unspecified (principal) ==

== ENCOUNTER → 2017-05-18 | Outpatient (CLI) | payer MEDICARE, OTHER | END | disposition home or self-care (01) | LOC: BFHH 12:11 | PROVIDERS: ATTEND Family Medicine | DX: D50.9 Iron deficiency anemia, unspecified (principal) ==

== ENCOUNTER 2017-05-22 23:57 | Emergency (ER) | payer MEDICARE, OTHER ==
--- NOTE | 2017-05-23 00:30 | ED.PDOC ---
History of Present Illness - General Chief Complaint: Laceration Stated Complaint: head laceration Time Seen by Provider: 05/23/17 00:03 Source: patient, family Exam Limitations: no limitations - History of Present Illness Initial Comments: Osmel Barton 81 y/o female fell on a tiled floor while checking daughter in her room tonight .No LOC,no blurryvision no hip or neckpains.Has sacalp laceration top of her head and abrasion right knee. Occurred: just prior to arrival Severity: moderate Injuries/Pain Location: head - scalp laceration, lower extremity - right knee abrasion Reason for Fall: slipped Loss of Consciousness: no loss of consciousness Improving Factors: nothing Worsening Factors: nothing Associated Symptoms (Fall): other - see hpi Allergies/Adverse Reactions: Allergies Penicillins Allergy (Verified 11/28/16 00:34) 07/24/12 ADM.ORDERS Home Medications: Ambulatory Orders Lisinopril 5 mg PO DAILY #0 07/25/12 Tramadol HCl 50 mg PO BID 04/06/14 Non-Formulary Medication (Novolin N) 0 units SUBCU BEDTIME PRN 06/03/14 Metoprolol Succinate [Toprol Xl] 50 mg PO DAILY #60 tab.er.24 06/05/14 Acetaminophen [Tylenol] 500 mg PO BID 11/12/14 Simvastatin 40 mg PO HS 11/12/14 Citalopram Hydrobromide 40 mg PO DAILY 03/10/15 Magnesium Chloride [Slow-Mag] 64 mg PO BID 03/10/15 Mirtazapine [Remeron] 15 mg PO BEDTIME 03/10/15 glipiZIDE [Glucotrol] 5 mg PO BID 03/10/15 Loratadine 10 mg PO DAILY 11/27/16 Magnesium Chloride [Slow-Mag] 64 mg PO QID 11/27/16 Memantine HCl-Donepezil HCl [Namzaric 28-10 mg] 1 cap PO DAILY 11/27/16 Omeprazole 20 mg PO DAILY 11/27/16 QUEtiapine FUMARATE [Seroquel] 100 mg PO BEDTIME 11/27/16 Aspirin 325 mg PO DAILY 11/29/16 Nitroglycerin 0.4 mg Tab [Nitrostat] 1 ea SL Q5MIN PRN #1 bottle 11/29/16 Review of Systems - Review of Systems Constitutional: States: no symptoms reported EENTM: States: no symptoms reported Respiratory: States: no symptoms reported Cardiology: States: no symptoms reported Gastrointestinal/Abdominal: States: no symptoms reported Genitourinary: States: no symptoms reported Musculoskeletal: States: no symptoms reported Skin: States: see HPI Neurological: States: no symptoms reported All other Systems: Reviewed and Negative, No Change from Baseline Past Medical History (General) - Patient Medical History Hx Seizures: No Hx Stroke: Yes - TIA Hx Dementia: Yes Hx Asthma: No Hx of COPD: No Hx Cardiac Disorders: Yes Hx Congestive Heart Failure: No Hx Pacemaker: Yes Hx Hypertension: Yes Hx Diabetes: Yes Hx Gastroesophageal Reflux: Yes Hx Cancer: No Hx MRSA: Yes MRSA Source:: Wound Surgical History: appendectomy, coronary bypass surgery, pacemaker, other - cataract bilateral - Vaccination History Hx Tetanus, Diphtheria Vaccination: Yes - 2014 Hx Influenza Vaccination: Yes Hx Pneumococcal Vaccination: Yes - Social History Hx Tobacco Use: No Hx Alcohol Use: No Hx Substance Use: No Hx Physical Abuse: No Hx Emotional Abuse: No - Female History Patient : No Physical Exam - Physical Exam General Appearance: Alert, Comfortable, No apparent distress Head Injury: other - 4 cms laceration scalp non bleeding non gaping Eye Exam: bilateral normal ENT Exam: hearing grossly normal, no evidence of ENT injury, no dental injury Peripheral Pulses: radial,right: 2+, radial,left: 2+ Cardiovascular/Respiratory: regular rate, rhythm, no M/R/G, normal peripheral pulses, normal breath sounds, no respiratory distress Gastrointestinal/Abdominal: non tender, soft Neurologic: alert, oriented x 3 Skin Exam: normal color, cyanosis, other - 1 cm laceration 5th digit,skin abrasion right knee - Sylvia Coma Score Best Eye Response (Corinne): (4) open spontaneously Best Verbal Response (Sylvia): (5) oriented Best Motor Response (Corinne): (6) obeys commands Sylvia Total: 15 Progress - Progress Progress: 05/23/17 00:35 Last Vital Signs Temp 96.5 F L 05/23/17 00:05 Pulse 60 05/23/17 00:05 Resp 18 05/23/17 00:05 BP 149/67 05/23/17 00:05 Pulse Ox 98 05/23/17 00:05 - EKG/XRAY/CT CT Ordered: Yes - head no acute abnormalities Procedures - Image Front/Back of Body: 1 - scalp 2 - right 5th digit - Laceration/Wound Repair Head Wound Length (cm): 4 - scalp Wound's Depth, Shape: superficial Wound Explored: clean Irrigated w/ Saline (cc's): 50 Betadine Prep?: No - hibiclens Volume Anesthetic (cc's): 10 - lidocaine gel Wound Repaired With: elvia Number of Sutures: 12 Layer Closure?: No Finger Wound Length (cm): 1 - right 5th digit Wound Explored: clean Irrigated w/ Saline (cc's): 15 Betadine Prep?: No - hibclens Anesthesia: 1% Lidocaine Volume Anesthetic (cc's): 5 - lidocaine gel Wound Repaired With: elvia Number of Sutures: 2 Layer Closure?: No Departure - Departure Clinical Impression: Fall at home Qualifiers: Encounter type: initial encounter Qualified Code(s): W19.XXXA - Unspecified fall, initial encounter; Y92.099 - Unspecified place in other non-institutional residence as the place of occurrence of the external cause Laceration of scalp without complication Qualifiers: Encounter type: initial encounter Qualified Code(s): S01.01XA - Laceration without foreign body of scalp, initial encounter Laceration of finger of right hand Qualifiers: Encounter type: initial encounter Finger: little finger Damage to nail status: without damage Foreign body presence: without foreign body Qualified Code(s): S61.216A - Laceration without foreign body of right little finger without damage to nail, initial encounter Time of Disposition: 01:47 Disposition: Discharge to Home or Self Care Condition: Fair Departure Forms: ED Discharge - Pt. Copy, Patient Portal Self Enrollment Instructions: DI for Laceration Repair -- [place] Referrals: Julio Singh MD [Primary Care Provider] - 1-2 Weeks Home Medications: Ambulatory Orders Lisinopril 5 mg PO DAILY #0 07/25/12 Tramadol HCl 50 mg PO BID 04/06/14 Non-Formulary Medication (Novolin N) 0 units SUBCU BEDTIME PRN 06/03/14 Metoprolol Succinate [Toprol Xl] 50 mg PO DAILY #60 tab.er.24 06/05/14 Acetaminophen [Tylenol] 500 mg PO BID 11/12/14 Simvastatin 40 mg PO HS 11/12/14 Citalopram Hydrobromide 40 mg PO DAILY 03/10/15 Magnesium Chloride [Slow-Mag] 64 mg PO BID 03/10/15 Mirtazapine [Remeron] 15 mg PO BEDTIME 03/10/15 glipiZIDE [Glucotrol] 5 mg PO BID 03/10/15 Loratadine 10 mg PO DAILY 11/27/16 Magnesium Chloride [Slow-Mag] 64 mg PO QID 11/27/16 Memantine HCl-Donepezil HCl [Namzaric 28-10 mg] 1 cap PO DAILY 11/27/16 Omeprazole 20 mg PO DAILY 11/27/16 QUEtiapine FUMARATE [Seroquel] 100 mg PO BEDTIME 11/27/16 Aspirin 325 mg PO DAILY 11/29/16 Nitroglycerin 0.4 mg Tab [Nitrostat] 1 ea SL Q5MIN PRN #1 bottle 11/29/16 Additional Instructions: Removal of elvia scalp laceration 05/29/17;finger laceration 06/04/17 [facility] ER Ice pack 10 -15 minutes 3 x a day for 2 days as needed;Tylenol 500 mg 1-2 tablets 3 x a day for pain
--- NOTE | 2017-05-23 00:33 | CT ---
EXAM: CT head without contrast. INDICATION: Fall. TECHNIQUE: Contiguous axial CT images of the brain. Intravenous contrast: Absent. DLP 859 mGy-cm. This exam was performed according to our departmental dose-optimization program, which includes automated exposure control, adjustment of the mA and/or kV according to patient size and/or use of iterative reconstruction technique. COMPARISON: 02/12/2017. FINDINGS: Subcutaneous: Unremarkable. No acute intracranial hemorrhage. There is diffuse cerebral atrophy with mild to moderate periventricular and deep white matter chronic microvascular changes. No midline shift. No mass effect. Ventricles: Passive enlargement secondary to cerebral atrophy. Polo-white differentiation preserved. Paranasal sinuses/mastoid air cells: Visualized portions are aerated. Bones/orbits: Visualized portions are unremarkable. IMPRESSION: 1. No CT evidence of acute intracranial hemorrhage. Electronically signed by: Luan Camacho MD 05/23/2017 12:32 AM [facility] Workstation: [id number]
[2017-05-23 00:35] VITALS: TEMP 96.5; O2SAT 98
[2017-05-23] MEDS ORDERED: TETANUS,DIPHTHERIA,PERTUSSIS 1 EA SYG IM ONE (00:36)
[2017-05-23] MEDS ORDERED: NEOMYCIN-BACITRACIN-POLYMYXIN 0.9 GM UD TOP ONE (00:36)
[2017-05-23] MEDS ORDERED: CHLORHEXIDINE GLUCONATE 4 % 15 ML UD TOP ONE (00:36)
[2017-05-23] MEDS ORDERED: LIDOCAINE 2 % GEL 5 ML TUBE TOP ONE (00:37)
[2017-05-23 02:18] VITALS: BP 170/70
== END 2017-05-23 01:55 | disposition home or self-care (01) ==
LOC: ER 23:57
DX: S01.01XA Laceration without foreign body of scalp, initial encounter (principal); S61.216A Laceration without foreign body of right little finger without damage to nail, initial encounter; I10 Essential (primary) hypertension; E11.9 Type 2 diabetes mellitus without complications; F03.90 Unspecified dementia, unspecified severity, without behavioral disturbance, psychotic disturbance, mood disturbance, and anxiety; Z86.73 Personal history of transient ischemic attack (TIA), and cerebral infarction without residual deficits; Z95.1 Presence of aortocoronary bypass graft; Z95.0 Presence of cardiac pacemaker; X58.XXXA Exposure to other specified factors, initial encounter; Y92.009 Unspecified place in unspecified non-institutional (private) residence as the place of occurrence of the external cause

== ENCOUNTER → 2017-05-25 | Outpatient (CLI) | payer MEDICARE, OTHER | END | disposition home or self-care (01) | LOC: BFHH 14:02 | PROVIDERS: ATTEND Family Medicine | DX: D50.9 Iron deficiency anemia, unspecified (principal) ==

== ENCOUNTER → 2017-06-01 | Outpatient (CLI) | payer MEDICARE, OTHER | LOC: BFHH 13:27 | PROVIDERS: ATTEND Family Medicine | DX: D50.9 Iron deficiency anemia, unspecified (principal) ==

== ENCOUNTER → 2017-06-08 | Outpatient (CLI) | payer MEDICARE, OTHER | LOC: BFHH 13:35 | PROVIDERS: ATTEND Family Medicine | DX: D50.9 Iron deficiency anemia, unspecified (principal) ==

== ENCOUNTER → 2017-06-22 | Outpatient (CLI) | payer MEDICARE, OTHER | LOC: BFHH 13:38 | PROVIDERS: ATTEND Family Medicine | DX: D50.9 Iron deficiency anemia, unspecified (principal); I13.0 Hypertensive heart and chronic kidney disease with heart failure and stage 1 through stage 4 chronic kidney disease, or unspecified chronic kidney disease; I50.20 Unspecified systolic (congestive) heart failure; E11.22 Type 2 diabetes mellitus with diabetic chronic kidney disease; N18.9 Chronic kidney disease, unspecified ==

== ENCOUNTER → 2017-07-06 | Outpatient (CLI) | payer MEDICARE, OTHER | LOC: BFHH 11:43 | PROVIDERS: ATTEND Family Medicine | DX: D50.9 Iron deficiency anemia, unspecified (principal) ==

== ENCOUNTER → 2017-07-10 | Outpatient (CLI) | payer MEDICARE, OTHER | LOC: BFHH 15:15 | PROVIDERS: ATTEND Family Medicine | DX: N39.0 Urinary tract infection, site not specified (principal) ==

== ENCOUNTER → 2017-07-20 | Outpatient (CLI) | payer MEDICARE, OTHER | LOC: BFHH 13:54 | PROVIDERS: ATTEND Family Medicine | DX: D50.9 Iron deficiency anemia, unspecified (principal) ==

== ENCOUNTER → 2017-07-29 | Outpatient (CLI) | payer MEDICARE, OTHER | LOC: BFHH 11:53 | PROVIDERS: ATTEND Internal Medicine Hematology & Oncology | DX: D63.1 Anemia in chronic kidney disease (principal) ==

== ENCOUNTER → 2017-08-03 | Outpatient (CLI) | payer MEDICARE, OTHER | LOC: BFHH 14:58 | PROVIDERS: ATTEND Internal Medicine Hematology & Oncology | DX: D50.9 Iron deficiency anemia, unspecified (principal) ==

== ENCOUNTER → 2017-08-10 | Outpatient (CLI) | payer MEDICARE, OTHER | END | disposition home or self-care (01) | LOC: BFHH 11:37 | PROVIDERS: ATTEND Internal Medicine Hematology & Oncology | DX: D50.9 Iron deficiency anemia, unspecified (principal) ==

== ENCOUNTER → 2017-08-17 | Outpatient (CLI) | payer MEDICARE, OTHER | LOC: GMAB 13:57 | PROVIDERS: ATTEND Family Medicine | DX: D50.9 Iron deficiency anemia, unspecified (principal); I13.0 Hypertensive heart and chronic kidney disease with heart failure and stage 1 through stage 4 chronic kidney disease, or unspecified chronic kidney disease; I50.20 Unspecified systolic (congestive) heart failure; E11.22 Type 2 diabetes mellitus with diabetic chronic kidney disease; D63.1 Anemia in chronic kidney disease ==

== ENCOUNTER → 2017-08-24 | Outpatient (CLI) | payer MEDICARE, OTHER | LOC: LAB.O 14:45 | PROVIDERS: ATTEND Family Medicine | DX: D50.9 Iron deficiency anemia, unspecified (principal) ==

== ENCOUNTER → 2017-08-31 | Outpatient (CLI) | payer MEDICARE, OTHER | LOC: BFHH 12:57 | PROVIDERS: ATTEND Internal Medicine Hematology & Oncology | DX: D50.9 Iron deficiency anemia, unspecified (principal) ==

== ENCOUNTER → 2017-09-07 | Outpatient (CLI) | payer MEDICARE, OTHER | LOC: LAB 16:33 | PROVIDERS: ATTEND Family Medicine | DX: N18.9 Chronic kidney disease, unspecified (principal); D63.1 Anemia in chronic kidney disease ==

== ENCOUNTER → 2017-09-14 | Outpatient (CLI) | payer MEDICARE, OTHER | LOC: LAB.NP 15:07 | PROVIDERS: ATTEND Internal Medicine Hematology & Oncology | DX: N18.9 Chronic kidney disease, unspecified (principal); D63.1 Anemia in chronic kidney disease ==

== ENCOUNTER → 2017-09-21 | Outpatient (CLI) | payer MEDICARE, OTHER | LOC: BFHH 16:07 | PROVIDERS: ATTEND Family Medicine | DX: N18.9 Chronic kidney disease, unspecified (principal); D63.1 Anemia in chronic kidney disease ==

== ENCOUNTER → 2017-09-29 | Outpatient (CLI) | payer MEDICARE, OTHER | LOC: BFHH 16:19 | PROVIDERS: ATTEND Family Medicine | DX: N18.9 Chronic kidney disease, unspecified (principal); D63.1 Anemia in chronic kidney disease ==

== ENCOUNTER → 2017-10-05 | Outpatient (CLI) | payer MEDICARE, OTHER | LOC: BFHH 12:09 | PROVIDERS: ATTEND Family Medicine | DX: D63.1 Anemia in chronic kidney disease (principal) ==

== ENCOUNTER → 2017-10-12 | Outpatient (CLI) | payer MEDICARE, OTHER | LOC: BFHH 15:51 | PROVIDERS: ATTEND Family Medicine | DX: N18.9 Chronic kidney disease, unspecified (principal); D63.1 Anemia in chronic kidney disease ==

== ENCOUNTER → 2017-10-19 | Outpatient (CLI) | payer MEDICARE, OTHER | LOC: BFHH 16:15 | PROVIDERS: ATTEND Internal Medicine Hematology & Oncology | DX: I13.0 Hypertensive heart and chronic kidney disease with heart failure and stage 1 through stage 4 chronic kidney disease, or unspecified chronic kidney disease (principal); I50.20 Unspecified systolic (congestive) heart failure; N18.9 Chronic kidney disease, unspecified; D63.1 Anemia in chronic kidney disease; D50.9 Iron deficiency anemia, unspecified ==

== ENCOUNTER → 2017-10-26 | Outpatient (CLI) | payer MEDICARE, OTHER | LOC: BFHH 14:08 | PROVIDERS: ATTEND Internal Medicine Hematology & Oncology | DX: D63.1 Anemia in chronic kidney disease (principal) ==

== ENCOUNTER → 2017-11-02 | Outpatient (CLI) | payer MEDICARE, OTHER | LOC: BFHH 14:12 | PROVIDERS: ATTEND Internal Medicine Hematology & Oncology | DX: N18.9 Chronic kidney disease, unspecified (principal); D63.1 Anemia in chronic kidney disease ==

== ENCOUNTER → 2017-11-09 | Outpatient (CLI) | payer MEDICARE, OTHER | LOC: BFHH 16:45 | PROVIDERS: ATTEND Internal Medicine Hematology & Oncology | DX: N18.9 Chronic kidney disease, unspecified (principal); D63.1 Anemia in chronic kidney disease ==

== ENCOUNTER → 2017-11-17 | Outpatient (CLI) | payer MEDICARE, OTHER | LOC: GMAE 13:02 | PROVIDERS: ATTEND Family Medicine | DX: D63.1 Anemia in chronic kidney disease (principal); D50.9 Iron deficiency anemia, unspecified ==

== ENCOUNTER → 2017-11-23 | Outpatient (CLI) | payer MEDICARE, OTHER | LOC: BFHH 15:17 | PROVIDERS: ATTEND Family Medicine | DX: N18.9 Chronic kidney disease, unspecified (principal); D63.1 Anemia in chronic kidney disease ==

== ENCOUNTER → 2017-11-30 | Outpatient (CLI) | payer MEDICARE, OTHER | LOC: BFHH 13:01 | PROVIDERS: ATTEND Family Medicine | DX: I13.0 Hypertensive heart and chronic kidney disease with heart failure and stage 1 through stage 4 chronic kidney disease, or unspecified chronic kidney disease (principal); N18.9 Chronic kidney disease, unspecified; E11.22 Type 2 diabetes mellitus with diabetic chronic kidney disease; I50.20 Unspecified systolic (congestive) heart failure; F02.80 Dementia in other diseases classified elsewhere, unspecified severity, without behavioral disturbance, psychotic disturbance, mood disturbance, and anxiety ==

== ENCOUNTER → 2017-12-07 | Outpatient (CLI) | payer MEDICARE, OTHER | LOC: BFHH 14:38 | PROVIDERS: ATTEND Family Medicine | DX: N18.9 Chronic kidney disease, unspecified (principal); D63.1 Anemia in chronic kidney disease ==

== ENCOUNTER → 2017-12-29 | Outpatient (CLI) | payer MEDICARE, OTHER | LOC: BFHH 16:42 | PROVIDERS: ATTEND Family Medicine | DX: I13.0 Hypertensive heart and chronic kidney disease with heart failure and stage 1 through stage 4 chronic kidney disease, or unspecified chronic kidney disease (principal); D63.1 Anemia in chronic kidney disease; N18.9 Chronic kidney disease, unspecified; I50.20 Unspecified systolic (congestive) heart failure; E11.22 Type 2 diabetes mellitus with diabetic chronic kidney disease; E11.40 Type 2 diabetes mellitus with diabetic neuropathy, unspecified; I25.119 Atherosclerotic heart disease of native coronary artery with unspecified angina pectoris; M19.91 Primary osteoarthritis, unspecified site; G89.29 Other chronic pain; M54.5 Low back pain ==

== ENCOUNTER → 2018-01-05 | Outpatient (CLI) | payer MEDICARE, OTHER | LOC: BFHH 13:41 | PROVIDERS: ATTEND Family Medicine | DX: D63.1 Anemia in chronic kidney disease (principal); I13.0 Hypertensive heart and chronic kidney disease with heart failure and stage 1 through stage 4 chronic kidney disease, or unspecified chronic kidney disease ==

== ENCOUNTER → 2018-01-11 | Outpatient (CLI) | payer MEDICARE, OTHER | LOC: BFHH 12:52 | PROVIDERS: ATTEND Family Medicine | DX: N18.9 Chronic kidney disease, unspecified (principal); D63.1 Anemia in chronic kidney disease ==

== ENCOUNTER → 2018-01-19 | Outpatient (CLI) | payer MEDICARE, OTHER | LOC: BFHH 14:21 | PROVIDERS: ATTEND Internal Medicine Hematology & Oncology | DX: N18.9 Chronic kidney disease, unspecified (principal); D63.1 Anemia in chronic kidney disease; D50.9 Iron deficiency anemia, unspecified ==

== ENCOUNTER → 2018-01-25 | Outpatient (CLI) | payer MEDICARE, OTHER | LOC: BFHH 11:40 | PROVIDERS: ATTEND Family Medicine | DX: D50.9 Iron deficiency anemia, unspecified (principal) ==

== ENCOUNTER → 2018-02-03 | Outpatient (CLI) | payer MEDICARE, OTHER | LOC: BFHH 10:00 | PROVIDERS: ATTEND Family Medicine | DX: D63.1 Anemia in chronic kidney disease (principal) ==

== ENCOUNTER → 2018-02-08 | Outpatient (CLI) | payer MEDICARE, OTHER | LOC: BFHH 13:49 | PROVIDERS: ATTEND Family Medicine | DX: N18.9 Chronic kidney disease, unspecified (principal); D63.1 Anemia in chronic kidney disease ==

== ENCOUNTER → 2018-02-15 | Outpatient (CLI) | payer MEDICARE, OTHER | LOC: BFHH 12:59 | PROVIDERS: ATTEND Family Medicine | DX: D50.9 Iron deficiency anemia, unspecified (principal) ==

== ENCOUNTER → 2018-02-22 | Outpatient (CLI) | payer MEDICARE, OTHER | LOC: GMAE 10:08 | PROVIDERS: ATTEND Family Medicine | DX: I50.20 Unspecified systolic (congestive) heart failure (principal); E78.5 Hyperlipidemia, unspecified; E07.89 Other specified disorders of thyroid ==

== ENCOUNTER → 2018-03-01 | Outpatient (CLI) | payer MEDICARE, OTHER | LOC: BFHH 14:02 | PROVIDERS: ATTEND Family Medicine | DX: D63.1 Anemia in chronic kidney disease (principal) ==

== ENCOUNTER → 2018-03-08 | Outpatient (CLI) | payer MEDICARE, OTHER | LOC: BFHH 13:32 | PROVIDERS: ATTEND Family Medicine | DX: D50.9 Iron deficiency anemia, unspecified (principal) ==

== ENCOUNTER → 2018-03-15 | Outpatient (CLI) | payer MEDICARE, OTHER | LOC: BFHH 12:50 | PROVIDERS: ATTEND Family Medicine | DX: D50.9 Iron deficiency anemia, unspecified (principal) ==

== ENCOUNTER → 2018-03-22 | Outpatient (CLI) | payer MEDICARE, OTHER | LOC: BFHH 13:53 | PROVIDERS: ATTEND Family Medicine | DX: D63.1 Anemia in chronic kidney disease (principal) ==

== ENCOUNTER → 2018-03-29 | Outpatient (CLI) | payer MEDICARE, OTHER | LOC: GMAE 15:16 | PROVIDERS: ATTEND Family Medicine | DX: N18.9 Chronic kidney disease, unspecified (principal); D63.1 Anemia in chronic kidney disease ==

== ENCOUNTER → 2018-04-05 | Outpatient (CLI) | payer MEDICARE, OTHER | LOC: BFHH 12:21 | PROVIDERS: ATTEND Family Medicine | DX: D50.9 Iron deficiency anemia, unspecified (principal) ==

== ENCOUNTER → 2018-04-12 | Outpatient (CLI) | payer MEDICARE, OTHER | LOC: BFHH 11:26 | PROVIDERS: ATTEND Family Medicine | DX: D50.9 Iron deficiency anemia, unspecified (principal) ==

== ENCOUNTER → 2018-04-19 | Outpatient (CLI) | payer MEDICARE, OTHER | LOC: BFHH 12:42 | PROVIDERS: ATTEND Family Medicine | DX: D63.1 Anemia in chronic kidney disease (principal) ==

== ENCOUNTER → 2018-04-26 | Outpatient (CLI) | payer MEDICARE, OTHER | LOC: BFHH 12:14 | PROVIDERS: ATTEND Family Medicine | DX: D50.9 Iron deficiency anemia, unspecified (principal); I50.20 Unspecified systolic (congestive) heart failure; E11.40 Type 2 diabetes mellitus with diabetic neuropathy, unspecified ==

== ENCOUNTER → 2018-05-03 | Outpatient (CLI) | payer MEDICARE, OTHER | LOC: BFHH 17:23 | PROVIDERS: ATTEND Family Medicine | DX: D63.1 Anemia in chronic kidney disease (principal) ==

== ENCOUNTER → 2018-05-10 | Outpatient (CLI) | payer MEDICARE, OTHER | LOC: BFHH 15:01 | PROVIDERS: ATTEND Family Medicine | DX: D50.9 Iron deficiency anemia, unspecified (principal); I50.20 Unspecified systolic (congestive) heart failure ==

== ENCOUNTER → 2018-05-17 | Outpatient (CLI) | payer MEDICARE, OTHER | LOC: BFHH 12:48 | PROVIDERS: ATTEND Family Medicine | DX: D63.1 Anemia in chronic kidney disease (principal); D50.9 Iron deficiency anemia, unspecified ==

== ENCOUNTER 2018-05-20 13:38 | Observation (INO) | payer MEDICARE, OTHER ==
--- NOTE | 2018-05-20 13:49 | ED.PDOC ---
History of Present Illness - General Stated Complaint: RAPID HEART RATE Time Seen by Provider: 05/20/18 13:45 Source: family Exam Limitations: clinical condition - History of Present Illness Initial Comments: Pt has been getting progressively weaker for 2-3 weeks per thang. Pt won't eat or drink much. Today pt's heart was found to be racing. Hx of dementia and A.fib Timing/Duration: getting worse Severity/Quality: moderate Chest Pain Radiation: no radiation Activities at Onset: none Prior Chest Pain/Cardiac Workup: cardiac cath Improving Factors: nothing Worsening Factors: nothing Nitro Today/Relief: no nitro taken today Aspirin Treatment Today: no aspirin today Associated Symptoms: denies symptoms Allergies/Adverse Reactions: Allergies Penicillins Allergy (Verified 11/28/16 00:34) 07/24/12 ADM.ORDERS Home Medications: Ambulatory Orders Tramadol HCl 50 mg PO BID 04/06/14 Metoprolol Succinate [Toprol Xl] 50 mg PO DAILY #60 tab.er.24 06/05/14 Acetaminophen [Tylenol] 500 mg PO BID 11/12/14 Simvastatin 40 mg PO HS 11/12/14 Citalopram Hydrobromide 40 mg PO DAILY 03/10/15 Magnesium Chloride [Slow-Mag] 64 mg PO BID 03/10/15 glipiZIDE [Glucotrol] 5 mg PO BID 03/10/15 Loratadine 10 mg PO DAILY 11/27/16 Memantine HCl-Donepezil HCl [Namzaric 28-10 mg] 1 cap PO BEDTIME 11/27/16 Omeprazole 20 mg PO DAILY 11/27/16 QUEtiapine FUMARATE [Seroquel] 50 mg PO BEDTIME 11/27/16 Nitroglycerin 0.4 mg Tab [Nitrostat] 1 ea SL Q5MIN PRN #1 bottle 11/29/16 Aspirin 160 mg PO DAILY 12/12/17 Insulin Aspart [Novolog] 100 unit SC BEDTIME PRN 12/12/17 Nitrofurantoin Monohydrate Mac [Macrobid] 100 mg PO BID 05/20/18 Review of Systems - Review of Systems Constitutional: Denies: chills, fever EENTM: States: no symptoms reported Respiratory: States: short of breath. Denies: cough Cardiology: States: chest pain, palpitations Gastrointestinal/Abdominal: Denies: abdominal pain, diarrhea, vomiting Genitourinary: States: no symptoms reported Musculoskeletal: States: no symptoms reported Skin: States: no symptoms reported Neurological: Denies: headache Endocrine: States: no symptoms reported Hematologic/Lymphatic: States: no symptoms reported Unable to Obtain Due To: dementia Past Medical History (General) - Patient Medical History Hx Seizures: No Hx Stroke: Yes - TIA Hx Dementia: Yes Hx Asthma: No Hx of COPD: No Hx Cardiac Disorders: Yes Hx Congestive Heart Failure: No Hx Pacemaker: Yes Hx Hypertension: Yes Hx Diabetes: Yes Hx Gastroesophageal Reflux: Yes Hx Cancer: No Hx MRSA: Yes MRSA Source:: Wound - Vaccination History Hx Tetanus, Diphtheria Vaccination: Yes - 12/11/17 Hx Influenza Vaccination: Yes Hx Pneumococcal Vaccination: Yes - Social History Hx Tobacco Use: No Hx Alcohol Use: No Hx Substance Use: No Hx Physical Abuse: No Hx Emotional Abuse: No - Female History Patient : No Family Medical History - Family History Mother Family History: Unknown Living Status: Hx Family Asthma: No Hx Family Congestive Heart Failure: No Hx Family Hypertension: Yes Hx Family Diabetes: Yes Physical Exam - Physical Exam General Appearance: Alert, Restless Eyes, Ears, Nose, Throat Exam: PERRL/EOMI, other - mucosa very dry Neck: normal inspection Respiratory: no respiratory distress, rales, rhonchi Cardiovascular/Chest: tachycardia, irregularly irregular Gastrointestinal/Abdominal: normal bowel sounds, non tender, soft Extremity: non-tender, no pedal edema Neurologic: alert Skin Exam: normal color, warm/dry Lymphatic: no adenopathy Progress - EKG/XRAY/CT EKG: Atrial, Fibrillation, ST depression Comments: RVR, rate 127, QRS 86, QTc 526 Departure - Departure Clinical Impression: Atrial fibrillation with RVR, Acute hyperkalemia, Hypovolemia Congestive heart failure Qualifiers: Heart failure type: unspecified Heart failure chronicity: acute Qualified Code(s): I50.9 - Heart failure, unspecified Disposition: Admit Patient Referrals: ARIAN RIBEIRO MD [Primary Care Provider] - 1-2 Weeks Home Medications: Ambulatory Orders Tramadol HCl 50 mg PO BID 04/06/14 Metoprolol Succinate [Toprol Xl] 50 mg PO DAILY #60 tab.er.24 06/05/14 Acetaminophen [Tylenol] 500 mg PO BID 11/12/14 Simvastatin 40 mg PO HS 11/12/14 Citalopram Hydrobromide 40 mg PO DAILY 03/10/15 Magnesium Chloride [Slow-Mag] 64 mg PO BID 03/10/15 glipiZIDE [Glucotrol] 5 mg PO BID 03/10/15 Loratadine 10 mg PO DAILY 11/27/16 Memantine HCl-Donepezil HCl [Namzaric 28-10 mg] 1 cap PO BEDTIME 11/27/16 Omeprazole 20 mg PO DAILY 11/27/16 QUEtiapine FUMARATE [Seroquel] 50 mg PO BEDTIME 11/27/16 Nitroglycerin 0.4 mg Tab [Nitrostat] 1 ea SL Q5MIN PRN #1 bottle 11/29/16 Aspirin 160 mg PO DAILY 12/12/17 Insulin Aspart [Novolog] 100 unit SC BEDTIME PRN 12/12/17 Nitrofurantoin Monohydrate Mac [Macrobid] 100 mg PO BID 05/20/18 Decision To Admit - Decistion To Admit Decision to Admit Reason: Admit from ER Decision to Admit Date: 05/20/18 Decision to Admit Time: 15:55
[2018-05-20] MEDS ORDERED: SODIUM CHLORIDE 0.9% (FLUSH) 10 ML SYG IV PRN ×2 (13:55→17:09)
[2018-05-20] MEDS ORDERED: NITROGLYCERIN 0.4 MG 25 EA TAB SL ONE (13:55)
[2018-05-20] MEDS ORDERED: ASPIRIN TABLET 325 MG TAB PO ONE (13:55)
[2018-05-20] MEDS ORDERED: ONDANSETRON INJ 4 MG/2 ML VIAL IV ONE (13:55)
[2018-05-20] MEDS ORDERED: SODIUM CHLORIDE 0.9% 1000ML 1,000 ML IVS ONE (13:56)
--- NOTE | 2018-05-20 14:18 | RAD ---
EXAM DESCRIPTION: Chest,1 View CLINICAL HISTORY: 82 years Female, SOB COMPARISON: 11/27/2016 IMPRESSION: The heart remains enlarged, with central pulmonary vascular congestion. Median sternotomy wires with changes of prior cardiac surgery. Multilead left chest wall cardiac device. Diffuse reticulonodular interstitial opacities with patchy multifocal airspace opacities. The findings are concerning for CHF with pulmonary edema. Multifocal pneumonia may have a similar appearance. Recommend radiographic follow-up to confirm resolution. Small bilateral pleural effusions. No pneumothorax. No acute osseous abnormality. Electronically signed by: Enrique Hess MD 05/20/2018 2:16 PM [facility]
[2018-05-20] MEDS ORDERED: METOPROLOL TARTRATE INJ 5 MG/5 ML VIAL IV ONE ×2 (14:41→14:44)
--- NOTE | 2018-05-20 16:13 | HP ---
SUPERVISING PHYSICIAN: Fabián Barton MD CHIEF COMPLAINT: Rapid heart rate. HISTORY OF PRESENT ILLNESS: This is an 82-year-old female patient who presented to the Emergency Room today due to a rapid heart rate. She actually lives with one of her daughters. They brought her in today because she complained of her heart racing and the daughter stated that over the last two to three weeks, she has progressively gotten weaker. Around [place], she could actually use her walker to get around. She did need assistance in and out of bed, but she could use the walker without assistance. Over the last few weeks, she stays in the bed most of the time. She needs full assist to get up to a chair. She does not walk or use her walker anymore. She also has gotten to the point that she does not eat or drink anything. She has not taken her medications for the past three days. She is on metoprolol succinate 50 mg for her atrial fibrillation. She had been on an anticoagulant in the past, but due to her multiple falls, they had decided to just put her on an aspirin. She also has a significant history of dementia. In the Emergency Room, her heart rate initially was 133, blood pressure was stable at 100/76. She received two doses of Lopressor while in the Emergency Room. She does have a history of a pacemaker. She also complained of some chest pain and was given one nitroglycerin. Lab showed WBCs 9.9, hemoglobin 9.7, hematocrit 31.1. Sodium was 138, potassium 5.2, chloride 107, carbon dioxide 21, anion gap 15.2, BUN 35, creatinine 1.22, glucose 175, calcium 90, magnesium 1.8. Cardiac enzymes were negative. She did have BNP 1,060. After receiving the Lopressor, her heart rate dropped to the 90s to low 100s. I was called by the Emergency Room doctor for admission to the hospital. PAST MEDICAL HISTORY: 1. Hypertension. 2. Chronic anemia, followed by Dr. Arzola. 3. Rheumatoid arthritis. 4. History of atrial fibrillation with a permanent cardiac pacemaker, being followed by Dr. Jones. 5. Diabetes mellitus, type 2. 6. Congestive heart failure with last echocardiogram in 2012 showing an ejection fraction of 45% with systolic dysfunction. 7. History of frequent transient ischemic attacks nand presyncopal episodes. 8. History of upper GI bleed in 2009 secondary to prepyloric and duodenal bulb ulcers with EGD performed in [address] Joe. 9. Chronic back pain. 10. Coronary artery disease. 11. Chronic renal insufficiency, followed by Dr. Corado. 12. Seasonal allergies. 13. Depression and anxiety. 14. Chronic hypomagnesemia. 15. Alzheimer's dementia with history of hallucinations. PAST SURGICAL HISTORY: 1. Coronary artery bypass graft. 2. Pacemaker placement. 3. Appendectomy. 4. Bilateral cataract surgery. 5. Uterine fibroid removal. 6. Back surgery. 7. Laminectomy. OUTPATIENT MEDICATIONS: Per the EMR and awaiting verification. ALLERGIES: PENICILLIN. FAMILY HISTORY: Positive for diabetes, hypertension, myocardial infarction, liver cancer. SOCIAL HISTORY: She has never smoked, but she was exposed to secondhand smoke. She denies any alcohol or illicit drug use. She lives in [place] with her daughter and son-in-law. Her daughter is an RN in the Emergency Room at [employer]. REVIEW OF SYSTEMS: Unable to obtain due to the patient's condition. All the information was obtained from the EMR and her daughters. PHYSICAL EXAMINATION: VITAL SIGNS: Temperature 97. Heart rate 108. Blood pressure 105/86. Respiratory rate 20. O2 saturation 91% on 3 liters nasal cannula. GENERAL: This is an 82-year-old female patient lying in her hospital bed. She is in no acute distress. HEENT: Normocephalic, atraumatic. Pupils are equal and reactive. Oropharynx is clear. NECK: Supple without mass. No discernible jugular venous distention. RESPIRATORY: Essentially clear to auscultation bilaterally. CHEST: There is equal rise and fall of the chest with inspiration and expiration. CARDIOVASCULAR: Tachycardic rate, irregular rhythm. GASTROINTESTINAL: Abdomen is soft, nondistended, nontender. Bowel sounds are positive. EXTREMITIES: No cyanosis, clubbing or edema. NEUROLOGIC: She is awake and alert, but she does not answer questions. According to her daughters, her speech is very limited. LABORATORY: Labs and films are as per history of present illness. IMPRESSION: 1. Atrial fibrillation with rapid ventricular response with history of atrial fibrillation on Lopressor. The patient has not been taking her medications for three days. 2. Chest pain with initial cardiac enzymes negative. 3. Urinary tract infection, being followed by Dr. Tracey. She has been on Macrobid. 4. Weakness and deconditioning, worsened in the past three weeks. 5. Congestive heart failure with last echocardiogram in 2012 showing an ejection fraction of 45% with systolic dysfunction. She is on a beta ambreen, but no ANSELMO inhibitor. Although her chest x-ray shows pulmonary edema, her lungs are clear and she has not had any signs or symptoms of an exacerbation. 6. Diabetes mellitus, type 2. 7. Anemia. 8. History of rheumatoid arthritis. 9. Gastroesophageal reflux disease. 10. Chronic renal failure. PLAN: We will admit the patient to the hospital. I have started the chest pain guidelines and we will continue to monitor her for her atrial fibrillation. She continues to be in atrial fibrillation at this time, but she has not taken her medications for several days. The family thinks she may take one or two of her medications orally, so I will change her Lopressor to tartrate and we will attempt to get her Lopressor down today. It will be 50 mg b.i.d. Her urine culture is back and did not show any growth, but I will change her from Macrobid to Rocephin. She will also need a pureed diet with thickened liquids. Dr. Jones is in clinic tomorrow here in [place] and I may call him for recommendations on her treatment. I have held most of her p.o. medications. She will have a proton pump inhibitor for ulcer prophylaxis and will have Lovenox for deep venous thrombosis prophylaxis. I will repeat her labs in the morning. At this point, I am not convinced she is having an exacerbation of her congestive heart failure, but I will see how she does clinically. She is on no diuretics and we may need to give some to her tomorrow because her BNP is elevated and her chest x-ray shows some pulmonary edema. I have also done blood sugars a.c. and h.s. with sliding scale NovoLog insulin coverage. She is a DNR, but it may be beneficial for the family to consider hospice for discharge as the patient has a poor prognosis and she is no longer eating or drinking, nor is she taking her medicines. We will continue to monitor the patient closely and follow as needed. Dr. Barton is the collaborating physician and available for consultation. #[id number] [facility]
[2018-05-20] MEDS ORDERED: MORPHINE SULFATE INJ 10 MG/ML VIAL IV PRN (17:09)
[2018-05-20] MEDS ORDERED: NITROGLYCERIN 0.4 MG 25 EA TAB SL PRN (17:09)
[2018-05-20] MEDS ORDERED: ACETAMINOPHEN 325 MG TAB PO PRN (17:09)
[2018-05-20] MEDS ORDERED: GLUCAGON INJ 1 MG VIAL SUBCU PRN (17:18)
[2018-05-20] MEDS ORDERED: DEXTROSE 50% 25 GM/50 ML SYG IV PRN (17:18)
[2018-05-20] MEDS ORDERED: IV SET AND CAP CHANGE INJ INJ SCH (17:30)
[2018-05-20] MEDS ORDERED: ACETAMINOPHEN 500 MG TAB ONE (19:16)
[2018-05-20] MEDS ORDERED: MAGNESIUM CHLORIDE 64 MG TAB ONE (19:16)
[2018-05-20] MEDS ORDERED: traMADol HCL 50 MG TAB ONE (19:17)
[2018-05-20] MEDS ORDERED: ACETAMINOPHEN 500 MG TAB PO SCH (21:00)
[2018-05-20] MEDS ORDERED: NON-FORMULARY MEDICATION 1 EA MIS (Simvastatin [Simvastatin] 40 MG) PO SCH (21:00)
[2018-05-20] MEDS ORDERED: MAGNESIUM CHLORIDE 64 MG TAB PO SCH (21:00)
[2018-05-20] MEDS ORDERED: NON-FORMULARY MEDICATION 1 EA MIS (Memantine Hcl-Donepezil Hcl [Namzaric 28-10 Mg] 1 CAP) PO SCH (21:00)
[2018-05-20] MEDS ORDERED: traMADol HCL 50 MG TAB PO SCH (21:00)
[2018-05-20] MEDS: QUEtiapine FUMARATE 100 MG TAB PO SCH (21:01)
[2018-05-20] MEDS: SODIUM CHLORIDE 0.9% (FLUSH) 10 ML SYG IV SCH (21:01)
[2018-05-20] MEDS: METOPROLOL TARTRATE 50 MG TAB PO SCH (21:01)
[2018-05-20] MEDS: HYDROcodone/APAP 5MG/217MG LIQ 10 ML UD PO SCH (21:02)
[2018-05-20] MEDS: ENOXAPARIN SODIUM 40 MG/0.4 ML SYG SUBCU SCH (21:02)
[2018-05-20] MEDS: INSULIN LISPRO 100 UNITS/ML PEN SUBCU SCH (21:04)
[2018-05-21] MEDS: PANTOPRAZOLE SODIUM IV 40 MG VIAL IV SCH (06:19)
[2018-05-21] MEDS: INSULIN LISPRO 100 UNITS/ML PEN SUBCU SCH ×4 (07:35→21:30)
[2018-05-21] MEDS: METOPROLOL TARTRATE 50 MG TAB PO SCH ×2 (08:49→20:38)
[2018-05-21] MEDS: HYDROcodone/APAP 5MG/217MG LIQ 10 ML UD PO SCH ×2 (08:49→20:40)
[2018-05-21] MEDS: SODIUM CHLORIDE 0.9% (FLUSH) 10 ML SYG IV SCH ×2 (08:50→20:41)
[2018-05-21] MEDS ORDERED: LORATADINE 10 MG TAB PO SCH (09:00)
[2018-05-21] MEDS ORDERED: ASPIRIN TABLET 325 MG TAB PO SCH (09:00)
[2018-05-21] MEDS ORDERED: METOPROLOL SUCCINATE XL 50 MG TAB PO SCH (09:00)
[2018-05-21] MEDS ORDERED: CITALOPRAM HBR 20 MG TAB PO SCH (09:00)
--- NOTE | 2018-05-21 09:53 | RAD ---
EXAM DESCRIPTION: Chest,1 View CLINICAL HISTORY: 82 years Female, chf COMPARISON: Radiographs of the chest dated 05/20/2017. TECHNIQUE: AP radiograph of the chest was obtained. FINDINGS: Trachea is midline.The cardiomediastinal silhouette is normal in size. The pulmonary vasculature is within normal limits. Airspace opacities are identified throughout both lungs unchanged compared to prior examination.No evidence of pleural effusions. IMPRESSION: Stable appearance of the chest compared to 05/20/2017. Electronically signed by: Christina Roberson MD 05/21/2018 9:51 AM [facility]
[2018-05-21] MEDS: QUEtiapine FUMARATE 100 MG TAB PO SCH (20:38)
[2018-05-21] MEDS: ENOXAPARIN SODIUM 40 MG/0.4 ML SYG SUBCU SCH (20:40)
[2018-05-22] MEDS: PANTOPRAZOLE SODIUM IV 40 MG VIAL IV SCH (06:23)
[2018-05-22] MEDS: INSULIN LISPRO 100 UNITS/ML PEN SUBCU SCH (07:26)
[2018-05-22] MEDS: HYDROcodone/APAP 5MG/217MG LIQ 10 ML UD PO SCH (08:39)
[2018-05-22] MEDS: SODIUM CHLORIDE 0.9% (FLUSH) 10 ML SYG IV SCH (08:40)
[2018-05-22] MEDS: METOPROLOL TARTRATE 50 MG TAB PO SCH (08:40)
[2018-05-22 09:11] VITALS: O2SAT 98
--- NOTE | 2018-05-22 09:48 | PN ---
SUPERVISING PHYSICIAN: Morgan Pascual MD DATE: SUBJECTIVE: The patient is lying quietly in bed and appears in no acute distress. She has a difficult time answering most questions but she denied being in pain or having any nausea. I spoke with her 2 daughters at length today and they have decided when she is discharged to put her in hospice care with [facility] and [facility] has come to the hospital to speak with them and she will hopefully be discharged tomorrow to hospice care. OBJECTIVE: VITAL SIGNS: Temperature 98.3, pulse rate 60, blood pressure 110/62, respiratory rate 16, 02 saturation 98% on 4 liters nasal cannula. RESPIRATORY: Diminished at the bases, otherwise clear to auscultation. CARDIAC: Regular rate and rhythm. Sinus rhythm on the air sampling and monitoring. GI: Abdomen soft, nondistended, non-tender. Bowel sounds are positive. NEURO: She is awake and alert. She only answers a few simple yes/no questions appropriately. LABORATORY: WBC 9.6 with hemoglobin of 8.7, hematocrit of 27.9. Electrolytes are basically within normal limits. BUN 35, creatinine 1.09, blood sugars have run between 89 and 230. AST 98, ALT 117, alkaline phosphatase 122, serum total is low at 6, albumin low at 2.2. LDL cholesterol is 39.9, HDL 19. Chest x-ray shows stable appearance of the chest compared to 05/20/17. ASSESSMENT: 1. Atrial fibrillation with rapid ventricular response with history of atrial fibrillation and on Lopressor. On admission, she has not been taking her medications for three days. She received IV Lopressor. Her metoprolol has been changed to metoprolol tartrate 50 mg b.i.d.. We will be able to crush that so she can take her medications. 2. Chest pain. All cardiac enzymes have been negative. 3. Urinary tract infection. She has been followed by Dr. Webb. She has been on Macrobid and we have discontinued the Macrobid and started her on Rocephin. 4. Congestive heart failure with last echocardiogram in 2012 showing an ejection fraction of 45% with combined diastolic/systolic dysfunction. She is on a beta ambreen but no ANSELMO inhibitor. Chest x-ray initially showed pulmonary edema but today is is clear. She has no signs or symptoms of CHF exacerbation. 5. Diabetes mellitus, type 2. 6. Anemia. 7. History of rheumatoid arthritis. 8. Gastroesophageal reflux disease. 9. Chronic renal failure. PLAN: We will continue present supportive care. [facility] will take over on discharge and she will be on their hospice care. We have discontinued all of her p.o. medications except for her metoprolol that she needs to be given. They can discuss with Dr. Webb on her additional medications that she may need to be on. I spoke with Dr. Jones, automotive mechanical engineer, today and he felt like she was being treated appropriately. He did not want to give her an anselmo inhibitor at this time as he felt it would lower her blood pressure too much and he also recommended that she be in hospice care given her poor prognosis and debilitated state so hopefully she will discharge tomorrow after [facility] as delivered the equipment. We will continue to monitor closely and follow as needed. Dr. Pascual is the collaborating physician available for consultation. #[id number] [facility]
[2018-05-22 10:16] VITALS: BP 82/55; TEMP 98.2
== END 2018-05-22 11:35 | disposition hospice, home (50) ==
LOC: ER 13:38 → INTOOBSV 16:12 → MS 16:12
PROVIDERS: ADMIT Nurse Practitioner Acute Care; ATTEND Nurse Practitioner Family
DX: I48.91 Unspecified atrial fibrillation (principal); E87.5 Hyperkalemia; E86.1 Hypovolemia; N39.0 Urinary tract infection, site not specified; R07.89 Other chest pain; I13.0 Hypertensive heart and chronic kidney disease with heart failure and stage 1 through stage 4 chronic kidney disease, or unspecified chronic kidney disease; I50.22 Chronic systolic (congestive) heart failure; E11.22 Type 2 diabetes mellitus with diabetic chronic kidney disease; N18.9 Chronic kidney disease, unspecified; K21.9 Gastro-esophageal reflux disease without esophagitis; F03.90 Unspecified dementia, unspecified severity, without behavioral disturbance, psychotic disturbance, mood disturbance, and anxiety; D63.1 Anemia in chronic kidney disease; I25.10 Atherosclerotic heart disease of native coronary artery without angina pectoris; M06.9 Rheumatoid arthritis, unspecified; G89.29 Other chronic pain; F32.9 Major depressive disorder, single episode, unspecified; F41.9 Anxiety disorder, unspecified; E83.42 Hypomagnesemia; Z66 Do not resuscitate; Z91.14 Patient's other noncompliance with medication regimen; Z79.4 Long term (current) use of insulin; Z79.82 Long term (current) use of aspirin; Z79.899 Other long term (current) drug therapy; Z88.0 Allergy status to penicillin; Z86.73 Personal history of transient ischemic attack (TIA), and cerebral infarction without residual deficits; Z95.0 Presence of cardiac pacemaker; Z95.1 Presence of aortocoronary bypass graft; Z77.22 Contact with and (suspected) exposure to environmental tobacco smoke (acute) (chronic); Z80.0 Family history of malignant neoplasm of digestive organs; Z83.3 Family history of diabetes mellitus; Z82.49 Family history of ischemic heart disease and other diseases of the circulatory system
CPT/HCPCS: 96374; 96375 ×2; 96376; 96372 ×2; J2405; J7030; J1650 ×2; J1815; 82553 ×3; 80053; 87086; 82948 ×7; 80061; 36415; 82550 ×3; 80048; 85025 ×3; 85730; 85610; 84484 ×3; 81001; 82947; 83735; 83880; 36416 ×3; 71045 ×2; 94760 ×5; 99285; 93005 ×3; G0378